=== PATIENT | male | born 1960 | race Caucasian/White ===

== ENCOUNTER 2018-05-11 14:36 | Outpatient (CLI) | payer OTHER ==
--- NOTE | 2018-05-12 11:44 | MRI ---
MRI PELVIS WITH AND WITHOUT IV CONTRAST: Date: 05/11/18 INDICATION: Elevated PSA. History of prostate biopsy last year on 12/10/16. TECHNIQUE: Multiplanar, multisequence MR images were obtained of the pelvis with and without contrast utilizing 19 mL of MultiHance is a prostate cancer specific protocol. The study was evaluated on an external [employer] workstation for multiparametric evaluation. FINDINGS: The prostatic volume is 73.7 mL with the prostate measuring 5.3 x 4.8 x 5.9 cm. There is a 2.6 x 0.6 cm lesion involving the right mid medial peripheral zone, right base lateral per ipheral zone, right central zone, and right seminal vesicle. There is extraprostatic extension into t he base of the right seminal vesicle. The total volume of the lesion is 1.39 cm. The mean ADC value a ssociated with this lesion is 1,062. No definite abnormal dynamic contrast enhancement is seen associ ated with this lesion. No additional focal lesion is evident. No definite enlarged lymph nodes are demonstrated. There are a few scattered diverticula involving th e colon. There is scattered intermediate signal intensity involving the bone marrow of the pelvis whi ch can be seen with red marrow hyperplasia. IMPRESSION: PI-RADS Category 5 - Very high (clinically significant cancer is highly likely to be present). POS: JEOVANNY
== END 2018-05-11 14:37 | disposition home or self-care (01) ==
LOC: TBSIIMAG 14:36
PROVIDERS: ATTEND Urology
DX: R97.20 Elevated prostate specific antigen [PSA] (principal)
CPT/HCPCS: 72197

== ENCOUNTER 2018-05-20 16:23 | Outpatient (CLI) | payer OTHER ==
[2018-05-20 16:52] LABS: Hemoglobin 14.9 g/dL (14.0-18.0); Mean Corpuscular HGB CONC 32.4 g/dL (32.0-36.0); Mean Corpuscular Hemoglobin 29.5 pg (27.0-31.0); Mean Corpuscular Volume 91.1 fL (78.0-98.0); Mean Platelet Volume 7.8 fL (7.4-10.4); Platelet Count 274 thou/uL (130-400); RBC Distribution Width 11.7 % (11.5-14.5); Red Blood Cell (RBC) Count 5.06 mill/uL (4.70-6.10); White Blood Cell (WBC) Count 8.7 thou/uL (4.8-10.8)
[2018-05-20 16:55] LABS: Bilirubin Negative (Negative); Blood, Urine Negative (Negative); Clarity CLEAR (Clear); Glucose, Urine (Dipstick) Negative (Negative); Leukocyte Small (Negative); Nitrite Negative (Negative); Protein, Urine (Dipstick) Negative (Neg-Trace); Specific Gravity, Urine 1.013 (1.002-1.036); pH, Urine 6.5 (5.0-9.0)
[2018-05-20 16:57] LABS: Bacteria/HPF None Seen HPF (None Seen); Hyaline Casts/LPF 0-3 HYALINE CAST LPF (0-3 Hyaline); RBC/HPF 0-3 HPF (0-3); Squamous Epithelial None Seen HPF (0-3); WBC/HPF 0-3 HPF (0-3)
[2018-05-20 17:08] LABS: PTT 25.4 SEC (22.9-36.1); Prothrombin Time 12.8 SEC (12.0-14.7)
[2018-05-20 17:22] LABS: Anion Gap 11 mmol/L (10-20); BUN (Urea Nitrogen) 16 mg/dL (8.4-25.7); Calc. Creatinine Clearance 0 mL/min (70-130); Calcium 9.8 mg/dL (7.8-10.44); Carbon Dioxide 27 mmol/L (22-29); Chloride 105 mmol/L (98-107); Estimated GFR-MDRD 69; Glucose 94 mg/dL (70-105); Potassium 4.1 mmol/L (3.5-5.1); Sodium 139 mmol/L (136-145)
--- NOTE | 2018-05-21 15:17 | EKG ---
Test Reason : Blood Pressure : / mmHG Vent. Rate : 068 BPM Atrial Rate : 068 BPM P-R Int : 176 ms QRS Dur : 090 ms QT Int : 402 ms P-R-T Axes : 051 038 037 degrees QTc Int : 427 ms Normal sinus rhythm Normal ECG No previous ECGs available Confirmed by KENDELL KERN, DR. Veloz ([id number]) on 05/21/2018 3:16:43 PM Referred By: BENEDICTO Confirmed By:DR. Magdiel RDZ MD
== END 2018-05-20 16:24 | disposition home or self-care (01) ==
LOC: LABBT 16:23
PROVIDERS: ATTEND Urology
DX: Z01.818 Encounter for other preprocedural examination (principal); R97.20 Elevated prostate specific antigen [PSA]
CPT/HCPCS: 80048; 81001; 85027; 85610; 85730; 87086; 93005; 93010

== ENCOUNTER → 2018-05-28 | Day surgery (SDC) | payer OTHER ==
[2018-05-20 16:59] VITALS: BMI 27.8
[~2018-05-28] MED LIST: Fentanyl 100 MCG/2 ML VIAL ONE; Midazolam HCl 2 mg/2 ml Vial ONE; PROPOFOL 20 ML ONE; Sodium Chloride 0.9% 100 ML ONE; cefTRIAXone\\ROCEPHIN 1 GM VIAL ONE
== END ==
LOC: SDC 05:57
PROVIDERS: ATTEND Urology
DX: R97.20 Elevated prostate specific antigen [PSA] (principal); Z79.82 Long term (current) use of aspirin; Z79.899 Other long term (current) drug therapy
CPT/HCPCS: J0696; J2250; J2704; J3010; J7050

== ENCOUNTER 2018-06-16 10:55 | Day surgery (SDC) | payer OTHER ==
[2018-06-15 14:17] VITALS: BMI 27.8
[2018-06-16] MEDS ORDERED: cefTRIAXone\\ROCEPHIN 1 GM VIAL ONE (11:11)
[2018-06-16] MEDS ORDERED: Sodium Chloride 0.9% 100 ML ONE (11:12)
[2018-06-16] MEDS ORDERED: Fentanyl 100 MCG/2 ML VIAL ONE ×2 (12:43→14:14)
[2018-06-16] MEDS ORDERED: PHENYLEPHRINE-NS 100 MCG/ML 10 ML SYRINGE ONE (12:49)
[2018-06-16] MEDS ORDERED: PROPOFOL 200 MG/20 ML VIAL ONE (12:49)
[2018-06-16] MEDS ORDERED: Midazolam HCl 2 mg/2 ml Vial ONE (14:14)
--- NOTE | 2018-06-16 20:27 | OP ---
DATE OF PROCEDURE: 06/16/2018 SERVICE: Urology. SURGEON: Nasim Rashid M.D. PREOPERATIVE DIAGNOSIS: Elevated PSA. POSTOPERATIVE DIAGNOSIS: Elevated PSA. PROCEDURE PERFORMED: MRI, ultrasound fusion targeted biopsy. INDICATIONS FOR PROCEDURE: Mr. Cadet is a 57-year-old white male with an elevated PSA with previou s negative biopsy by Dr. Pillai. His PSA has now risen up to 9.08 which is concerning. He underwent an MRI which demonstrated an MRI volume of 74 mL with PI-RADS 5 lesion at the right base and right ce ntral zone with concern for extraprostatic and extension into the possible right seminal vesicle. We discussed MRI targeted biopsy with all discussed risks and benefits and he has agreed to proceed for wood. DESCRIPTION OF PROCEDURE: After identification of arm band, verification of consent, the patient was brought back to the operating room. He underwent total intravenous anesthesia. He was then placed in the left lateral decubitus position per standard prostate biopsy. The ultrasound probe was placed into the patient's rectum and the [employer] system was situated over the patient. After calibrations w ere completed, the sweep was used to acquire all prostate imaging. Ultrasound measurement of the pro state came out to 75.9 mL on ultrasound. The fusion process was completed which lined up the lesion nicely over the right base of the prostate. Targeted biopsies were taken x6 through the concerning a louie on the right base of the prostate. Upon completion, a standard 12 core biopsies were taken from each sextant within the prostate. Upon completion, bleeding was minimal. The ultrasound probe was r emoved. The patient then awakened and taken to PACU for recovery in stable condition. COMPLICATIONS: None. ESTIMATED BLOOD LOSS: Minimal. RETAINED TUBES AND DRAINS: None. SPECIMENS: Prostate biopsies. DISPOSITION: The patient will be discharged home and follow up with me in approximately 1-2 weeks fo r a postop check.
== END 2018-06-17 16:45 | disposition home or self-care (01) ==
LOC: SDC 10:55
PROVIDERS: ATTEND Urology
PROC: 0VB03ZX Excision of Prostate, Percutaneous Approach, Diagnostic (ICD-10-PCS; principal; 2018-06-16)
DX: N41.0 Acute prostatitis (principal); N41.1 Chronic prostatitis; N40.0 Benign prostatic hyperplasia without lower urinary tract symptoms; I10 Essential (primary) hypertension; E78.5 Hyperlipidemia, unspecified; Z79.82 Long term (current) use of aspirin; Z79.899 Other long term (current) drug therapy
CPT/HCPCS: 88305; 88342; J0696; J2250; J2704; J3010; J7050